=== PATIENT | female | born 1980 ===

== ENCOUNTER 2018-09-28 13:37 | Emergency (ER) | payer SELFPAY | END 2018-09-28 14:15 | disposition left against medical advice (07) | LOC: EMS 13:39 | DX: F19.939 Other psychoactive substance use, unspecified with withdrawal, unspecified (principal); Z53.21 Procedure and treatment not carried out due to patient leaving prior to being seen by health care provider ==

== ENCOUNTER 2018-09-28 16:29 | Emergency (ER) | payer MEDICAID ==
[~2018-09-28] VITALS: Ht 162.6 cm; Wt 77.3 kg
[2018-09-28 19:44] VITALS: BP 98/61
== END 2018-09-28 20:23 | disposition home or self-care (01) ==
LOC: EMS 16:30
DX: F11.23 Opioid dependence with withdrawal (principal); R11.2 Nausea with vomiting, unspecified; M79.10 Myalgia, unspecified site

== ENCOUNTER 2018-10-01 14:15 | Emergency (ER) | payer MEDICAID ==
[~2018-10-01] VITALS: Ht 162.6 cm; Wt 77.3 kg
[2018-10-01 14:22] VITALS: BP 134/89
== END 2018-10-01 17:53 | disposition left against medical advice (07) ==
LOC: EMS 14:17
DX: R51 Headache (principal); R42 Dizziness and giddiness; R11.0 Nausea; Z53.21 Procedure and treatment not carried out due to patient leaving prior to being seen by health care provider

== ENCOUNTER 2019-02-09 11:05 | Emergency (ER) | payer OTHER ==
[~2019-02-09] VITALS: Ht 162.6 cm; Wt 88.1 kg
[2019-02-09 13:10] VITALS: BP 123/67
== END 2019-02-09 13:19 | disposition home or self-care (01) ==
LOC: EMS 11:07
DX: J02.8 Acute pharyngitis due to other specified organisms (principal); B97.89 Other viral agents as the cause of diseases classified elsewhere
CPT/HCPCS: 87430